=== PATIENT | female | born 1985 ===

== ENCOUNTER 2020-06-08 21:03 | Outpatient (REF) | payer MEDICAID, SELFPAY ==
[2020-06-12 17:12] LABS: SARS-CoV-2 RNA Undetected (Undetected); SARS-CoV-2 Specimen Source Nasal
== END 2020-06-08 21:23 ==
LOC: NCHCN 21:03
PROVIDERS: Visit Provider Family Medicine
DX: J34.89 Other specified disorders of nose and nasal sinuses (principal)
CPT/HCPCS: U0003

== ENCOUNTER 2020-08-17 14:59 | Outpatient (REF) | payer MEDICAID, SELFPAY ==
[2020-08-19 16:30] LABS: COVID-19 RT-PCR UVMMC Result Negative (Negative)
== END 2020-08-17 15:19 ==
LOC: NCHCN 14:59
PROVIDERS: Visit Provider Nurse Practitioner Family
DX: Z11.52 Encounter for screening for COVID-19 (principal); Z01.818 Encounter for other preprocedural examination
CPT/HCPCS: U0003

== ENCOUNTER 2020-11-27 08:45 | Outpatient (CLI) | payer MEDICAID, SELFPAY ==
--- NOTE | 2020-11-27 | DI.RAD_ITS ---
EXAM: XR THUMB LT CLINICAL HISTORY: LT THUMB PAIN M79.645. TECHNIQUE: 2D digital imaging was performed. COMPARISON: No exams were available for comparison FINDINGS: There is no evidence of fracture or dislocation. No abnormal soft tissue calcifications. Bone densi ty is normal. No osseous lesions. IMPRESSION: No significant radiographic findings in the left thumb. DATA REPOSITORY: RADIATION DOSE DELIVERED:
--- NOTE | 2020-11-27 17:15 | DI.VRAD_ITS ---
PROCEDURE INFORMATION: Exam: XR Left Finger(s) Exam date and time: 11/27/2020 5:04 PM Age: 35 years old Clinical indication: Finger(s); Left; Patient HX: Lt thumb pain TECHNIQUE: Imaging protocol: XR Left fingers. Views: Minimum 2 views. COMPARISON: No relevant prior studies available. FINDINGS: Bones/joints: Normal. Soft tissues: Normal. IMPRESSION: No acute findings. Dictated and Authenticated by: Manuel Mejia MD. Ordering:FLOWER Stover MD
--- OUTSIDE RECORDS SUMMARY | 2020-12-02 08:55 | XMS_ITS ---
:1985 Author Care Team Providers Name Role Phone Daphne Lee Kristen Primary Care Provider Unavailable Allergies Code Code System Name Reaction Severity Status Onset NKDA ? Medications Name Status Start Date Stop Date ? ? activated charcoal 200 mg capsule Active ? Not available Take 1 capsule every day by oral route after meals for 30 days. take 60 min once daily after a meal Androderm 2 mg/24 hour transdermal 24 hour Active ? Not available patch BD Luer-Chandni Syringe 1 mL Active ? Not pat ilable USE FOR DRAWING UP AND INJECTING TESTOSTERONE BD Regular Bevel [place] 18 gauge x 1 Active ? Not available USE FOR DRAWING UP TESTOSTERONE BD Regular Bevel [place] 22 gauge x 1 Active ? Not available USE FOR INJECTING SUBCUTANEOUSLY cephalexin 500 mg capsule Active ? Not av ailable TAKE 1 TABLET BY MOUTH FOUR TIMES DAILY FOR 5 DAYS fluconazole 150 mg tablet Active ? Not av ailable TK 1 T PO TWICE A WEEK fluconazole 50 mg tablet Active ? Not pat ilable Take 1 tablet every day by oral route for 30 days. hydromorphone 2 mg tablet Active ? Not av ailable nystatin 500,000 unit tablet Active ? Not available TAKE 1 TABLET BY MOUTH TWICE DAILY testosterone 1.62 % (20.25 mg/1.25 gram) Active ? Not available transdermal gel packet testosterone cypionate 200 mg/mL intramuscular oil Active ? Not available INJECT 0.1 ML SUBCUTANEOUSLY EVERY WEEK Problems Name Status Onset Date Source ? Gender Dysphoria Active 03/12/2020 ? Procedures None recorded. Results Lab Results None recorded. Past Encounters 11/19/2020 Chronic Recurrent Sinusitis; Pruritus An i; Exposure to Mold; Irritability and Anger Alex Wen ND: [address] [place] [address], Ph. 08/27/2020 Chronic Recurrent Sinusitis; Pruritus An i; Exposure to Mold; Irritability and Anger Alex Wen ND: [address] [place] [address], Ph. 07/29/2020 Adult Health Examination; Chronic Sinusi tis Denise Hanna, ND: [address] [place] [address], Ph. 07/16/2020 Pruritus Ani; Generalized Anxiety Disord er; Chronic Recurrent Sinusitis Daphne Lee, ND: [address] [place] [phone], Ph. 06/04/2020 Pruritus Ani; Chronic Recurrent Sinusiti s; Gender Dysphoria; Candidiasis Daphne Lee, ND: [address] [place] [phone], Ph. 05/28/2020 Dysthymia; Generalized Anxiety Disorder; Candidiasis Daphne Lee, ND: [address] [place] [phone], Ph. 04/23/2020 Vitamin D Deficiency; Macrocytic Anemia; Gender Dysphoria Daphne Lee, ND: [address] [place] [phone], Ph. Social History None recorded. Vaccine List None recorded. Plan of Care Patient Instructions Mold Diet: To limit mold/yeast: minimize gluten, cesar garcane (white and brown sugar, molasses, evaporated cane juice), corn, white rice, white flour, alcohol, kombucha, and all fermented foods like yogurt, kimchi, s aurkraut, cheeses. No fruit juice, no ap ples, no dates, no Peanut Butter (has aflatoxin). No coffee but Bulletproof Coffee is okay. Mold Testing & Remediation: Run [place] [employer] in home. Mold Diet: To limit mold/yeast: minimize gluten, cesar garcane (white and brown sugar, molasses, evaporated cane juice), corn, white rice, white flour, alcohol, kombucha, and all fermented foods like yogurt, kimchi, s aurkraut, cheeses. No fruit juice, no ap ples, no dates, no Peanut Butter (has aflatoxin). No coffee but Bulletproof Coffee is okay. Mold Testing & Remediation: contact a mold testing company (like [employer] or his associate [phone], [employer] [phone]) and if found then remediate mold ([employer], or [employer] lew). regardless, make sure house and bedr oom is at 40 for humidity, and use a hepa air filter with either UV and/or charcoal, consider [employer], [employer], [employer], or [employer], read reviews. Reminders Provider Appointments None recorded. ? ? Lab None recorded. ? ? Referral None recorded. ? ? Procedures None recorded. ? ? Surgeries None recorded. ? ? Imaging None recorded. ? ? Vitals Height Weight BMI Blood Pressure 5 ft 5 in 140 lbs 23.3 kg/m2 130/80 mm[Hg]
--- OUTSIDE RECORDS SUMMARY | 2020-12-02 08:55 | XMS_ITS | Continuity of Care Document ---
:1985 Author Organization [facility] Address [address] [place] [address] Phone Care Team Providers Name Role Phone PCP, of Choice Primary Care Provider Unavailable Delmar Marshall Attending Provider Allergies, Adverse Reactions, Alerts No allergy information available. Medications No medication information available. Problems No problem information available. Encounters Encounter Location(s) Arrival/Admit Date Discharge/Depart Date Provider(s) Departed [facility] April 02, 2020 April 02, 2020 Andria Jacobsen Referred Medical 5:46pm 5:47pm MD Rolando [facility] Dermatology Assessments No Assessments Information Available Functional Status No Functional Status information available Goals Goals may be documented in an alternate section. Mental Status No Mental Status Information Available Medical Equipment No Medical Equipment Information available Insurance Providers Payer Policy Id Coverage Id Subscriber's Subscriber Id Effective E xpiration Name Date Date MEDICAID OF [id number] NELLY LEMUS [id number] [place] S[place]F PAY Self N/A Social History Assigned Sex Female
--- OUTSIDE RECORDS SUMMARY | 2020-12-02 08:55 | XMS_ITS | Encounter Summary ---
:1985 Author Reason for Visit mold exposure Assessment and Plan Assessment Note Total visit time 26 min, with time spent on diet and/or lifestyle counseling and description of diagnosis and treatment rationale, 95% or more of time spent face to face. Patient happy with non-pharmaceutical ap proach to treatment at this time with the exception to prescription drugs listed. PARQ given for medicines and supplements. 1. Chronic recurrent sinusitis ? nystatin 500,000 unit tabl et ? fluconazole 50 mg tablet 2. Pruritus ani ? activated charcoal 200 mg capsule 3. Exposure to mold 4. Irritability and anger Discussion Note Call with questions. If symptoms wo rsening or medications are causing any undesirable side effects please call or return to the clinic sooner (if URGENT call my cell-it's on the voicemail and listed below). Return to Clinic as desired, ideally in 6-8 wks for 30 min evaluation and follow up to see how symptoms and health have changed with treatment plan, and we'll also go over any new labs and make any necessary changes to treatment plan. As a reminder, in regards to [facility] facilities or office visit referrals that are in network or that are not participating in network with your insurance, any labs or office visit referrals that your insurance doesn't cover will be you r financial responsibility, so you need to always double check charges and coverage prior to getting blood drawn with any lab or seeing any provider that we refer you to, do this by calling your [facility] and give them the CPT codes from the laboratory and give them the ICD-10 diagnosis codes from the office visit or the name of the provider we are refer ring you to, and contact your insurance' s laboratory benefits specialist for assistance with this For very urgent health matters Dr Wen' s cell phone is [phone]. For all other non-urgent matters please call the office at [phone] and leave a message, if we are helping someone else or if it 's after hours, someone should get back to you shortly. We commonly respond back to patients for non-urgent matters within 1-3 business days. Patient educational handouts: No information available. Plan of Care Patient Instructions Mold Diet: [...] is okay. Mold Testing & Remediation: Run [place] [employer] in home. Reminders Provider Appointments None recorded. ? ? Lab None recorded. ? ? Referral None recorded. ? ? Procedures None recorded. ? ? Surgeries None recorded. ? ? Imaging None recorded. ? ? Medications Name Start Date ? ? activated charcoal 200 mg capsule ? Take 1 capsule every day by oral route after meals fo r 30 days. take 60 min once daily after a meal Androderm 2 mg/24 hour transdermal 24 hour patch ? BD Luer-Chandni Syringe 1 mL ? USE FOR DRAWING UP AND INJECTING TESTOSTERONE BD Regular Bevel [place] 18 gauge x 1 ? USE FOR DRAWING UP TESTOSTERONE BD Regular Bevel [place] 22 gauge x 1 ? USE FOR INJECTING SUBCUTANEOUSLY cephalexin 500 mg capsule ? TAKE 1 TABLET BY MOUTH FOUR TIMES DAILY FOR 5 DAYS fluconazole 150 mg tablet ? TK 1 T PO TWICE A WEEK fluconazole 50 mg tablet ? Take 1 tablet every day by oral route for 30 days. hydromorphone 2 mg tablet ? nystatin 500,000 unit tablet ? TAKE 1 TABLET BY MOUTH TWICE DAILY testosterone 1.62 % (20.25 mg/1.25 gram) transdermal g el packet ? testosterone cypionate 200 mg/mL intramuscular oil ? INJECT 0.1 ML SUBCUTANEOUSLY EVERY WEEK Medications Administered None recorded. Vitals None recorded. Results Lab Results None recorded. Allergies Code Code System Name Reaction Severity Onset NKDA ? ? ? Problems Name Status Onset Date Source ? Gender Dysphoria Active 03/12/2020 ? Procedures None recorded. Vaccine List None recorded. Social History None recorded. Functional Status Unknown. Past Encounters 11/19/2020 Chronic Recurrent Sinusitis; Pruritus An i; Exposure to Mold; Irritability and Anger Alex Wen, ND: [address] [place] [address], Ph. History of Present Illness Note: <p>CC1: MCI, sinusitis, fatigue
Onset: January 2013
Character/Quality:: sinusitis worse since last appt, but having 1 can cider every 1-2d, and diet is not as sugarfree as could be. home is very moldy still, although runs an air purifier and will be replacing the alcazar in thesummer. has mold in current home, cleaning mold on wall next to bed regularly. has chronic sinusitis, brain fog, used to drink a lot of beer, had a lot of exposure cutting down live brush, had black mold growing in home and had to clean it off every week or so. has had mold exposure in multiple homes. constant congestion and clear mucous, possible DILLON unsure. headaches are common, but mb doesn't drink enough water. does have sugarcane in diet but has cut down on amount of it in diet.
Agg/Amel: pollen. mold.
Region and radiation: URI, head

</p> Review of Systems ? Notes: <p><span>CVS: denies heart p alpitations, arrhythmias, pitting edema, hypertension or hypotension. </span>
<span>Resp: denies SOB, DILLON, sinusitis, or allergies</span>
<s marrero>HEENT: denies head pain, visual or hearing disorders, changes in smell, eating/chewing problems/swallowing.</span>< br><span>Derm: denies skin abnormalities</span>
<spa n>M/E: denies mental/emotional disorders</span>
<span&gt ;M/S: denies changes in gait, myalgia, muscular weakness, difficulty walking /moving.</span></p> Physical Exam ? Notes: <p>Pt is happy and in NAD w/ out midline defects, eyes appear normal in sclera and pupil size, hair appears healthy. Skin appears healthy w/out major blemishes. Resp & musculatur e appears normal. No observed psych abnormalities.</p>
== END 2020-11-27 09:05 ==
PROVIDERS: Visit Provider Physician Assistant Medical
DX: M79.645 Pain in left finger(s) (principal)
CPT/HCPCS: 73140